=== PATIENT | female | born 1955 | race Caucasian/White ===

== ENCOUNTER 2018-06-04 19:45 | Inpatient (IN) ==
[2018-06-04] MEDS ORDERED: ceFAZolin 2 GM Premix Inj 2 GM/50 ML PIGGYBACK IV.SIG ONE (19:54)
[2018-06-04] MEDS ORDERED: Diphtheria/Tetanus/Pertussis Vaccine Inj 0.5 ML Syringe IM ONE (19:54)
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
[2018-06-04] MEDS ORDERED: Lidocaine 1% Inj 50 ML Vial INFILTRATN ONE (20:35)
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
[2018-06-04] MEDS ORDERED: Haloperidol Inj 5 MG/ML Ampul IV.PUSH PRN (21:03)
[2018-06-04] MEDS ORDERED: LORazepam 1 MG Tablet PO PRN (21:03)
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
[2018-06-05] MEDS: Sod Chloride 0.9% Inj 1,000 ML IV.CONT SCH ×3 (00:36→17:29)
[2018-06-05 01:30] LABS: Baso # (Auto) 0.1 th/mm3 (0.0-0.2); Baso % (Auto) 0.3 % (0.0-2.0); Hematocrit 45.1 % (35.0-46.0); Hemoglobin 15.6 gm/dL (11.6-15.3); Lymph # (Auto) 1.5 th/mm3 (1.0-4.8); Lymph % (Auto) 7.1 % (9.0-44.0); Mean Corpuscular HGB Conc 34.6 % (32.0-36.0); Mean Corpuscular Hemoglobin 32.4 pg (27.0-34.0); Mean Corpuscular Volume 93.8 fL (80.0-100.0); Mean Platelet Volume 7.7 fL (7.0-11.0); Mono # (Auto) 1.2 th/mm3 (0.0-0.9); Mono % (Auto) 5.9 % (0.0-8.0); Neut # (Auto) 18.1 th/mm3 (1.8-7.7); Neut % (Auto) 86.7 % (16.0-70.0); Platelet Count 363 th/mm3 (150-450); Red Blood Count 4.81 mil/mm3 (4.00-5.30); Red Cell Distribution Width 14.6 % (11.6-17.2); White Blood Count 20.8 th/mm3 (4.0-11.0)
[2018-06-05] MEDS ORDERED: Acetaminophen 325 MG Tablet PO PRN (06:57)
[2018-06-05] MEDS ORDERED: Morphine Sulfate Inj 2 MG/ML Vial IV.PUSH PRN (06:57)
[2018-06-05] MEDS ORDERED: Multivitamin Inj 10 ML, Thiamine Inj 100 MG, Folic Acid Inj 1 MG in Sodium Chlor 0.9% I... IV.SIG SCH ×2 (07:00→09:00)
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
[2018-06-05] MEDS: Methocarbamol 500 MG Tablet PO SCH ×2 (08:57→15:17)
[2018-06-05] MEDS ORDERED: Enoxaparin Inj 40 MG/0.4 ML Syringe SQ SCH (09:00)
[2018-06-05] MEDS ORDERED: Famotidine 20 MG Tablet PO SCH (09:00)
[2018-06-05] MEDS ORDERED: Docusate Sodium 100 MG Capsule PO SCH (09:00)
[2018-06-05] MEDS ORDERED: Lidocaine 5% Patch T-DERMAL SCH (09:00)
[2018-06-05 16:11] VITALS: BP 143/67; PULSE 80; RESP 20; TEMP 98; O2SAT 92
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
[2018-06-06] MEDS ORDERED: Chlorhexidine Gluconate 2% 1 Pack (2 Cloths) TOPICAL PRN (04:00)
[2018-06-06] MEDS ORDERED: Chlorhexidine Gluconate 2% 1 Pack (2 Cloths) TOPICAL SCH (04:00)
== END 2018-06-05 18:30 | disposition home or self-care (01) | DRG 184 ==
LOC: NEDA 19:45 → NEPI 19:45 → NEPHCDU 06-05 00:25 → EDBD 06-05 06:57 → N06 06-05 13:32
PROVIDERS: ADMIT Surgery; ATTEND Surgery
CPT/HCPCS: 70450; 70486; 71010; 71045; 71260; 72125; 72170; 73560; 74177; 80307; 82435; 82565; 82947; 84132; 84295; 84520; 85025; 85610; 85730; 86850; 86900; 86901; 87641; 90715; 90772; 90774; 90782; 90784; 94150; 94664; 94667; 96372; 96374; 97161; 99291; C8952; G0378; G0390; J0690; J1650; J2060; J3411; J7030; J7040; Q9967